=== PATIENT | female | born 1975 ===

== ENCOUNTER → 2021-11-28 | Outpatient (CLI) | payer OTHER ==
[~2021-11-28] VITALS: Ht 175.3 cm; Wt 107.5 kg
[~2021-11-28] MED LIST: FLAGYL500 MG PO; HYGROTON 2525 MG/TAB PO; NORVASC 10MG10 MG PO; SYNTHROID0.05 MG/TA PO
[2021-11-28 12:34] VITALS: BP 133/87; PULSE 59; TEMP 98.1
[2021-11-28 13:28] VITALS: BP 154/74; PULSE 59
== END ==
LOC: COL.RAD 12:00
DX: E04.1 Nontoxic single thyroid nodule (principal)